=== PATIENT | female | born 1985 | race Caucasian/White ===

== ENCOUNTER 2024-02-02 15:37 | Emergency (ER) | payer OTHER ==
[~2024-02-02] VITALS: Ht 167.6 cm; Wt 140.9 kg
[~2024-02-02 15:37] MED LIST: LO/OVRAL-21 301 TAB PO; LORTAB 5/500 501 TAB PO; NO HOME MEDICATIONS; PEN-VEE K500 MG PO
[2024-02-02 15:42] VITALS: TEMP 97.6
[2024-02-02] MEDS ORDERED: AMOXICILLIN 8751 TAB PO (16:02)
[2024-02-02 16:07] VITALS: BP 138/88; PULSE 73
== END 2024-02-02 16:09 | disposition home or self-care (01) ==
LOC: COL.ER 15:37
DX: K05.30 Chronic periodontitis, unspecified (principal); I10 Essential (primary) hypertension; Z79.899 Other long term (current) drug therapy